=== PATIENT | female | born 1965 | race Caucasian/White ===

== ENCOUNTER 2017-08-12 16:49 | Emergency (ER) | payer MEDICARE ==
[~2017-08-12] VITALS: Ht 154.9 cm; Wt 75.0 kg
[2017-08-12] MEDS ORDERED: IBUPROFEN 800 MG TABLET PO ONE (18:00)
[2017-08-12] MEDS ORDERED: BACITRACIN 0.9 GM PACKET OINTMENT TP ONE (18:00)
[2017-08-12] MEDS ORDERED: TraMADol HCL 50 MG TABLET PO ONE (18:30)
[2017-08-12 19:42] VITALS: BP 122/70
== END 2017-08-12 19:46 | disposition home or self-care (01) ==
LOC: EMS 16:51
DX: S00.93XA Contusion of unspecified part of head, initial encounter (principal); Z88.0 Allergy status to penicillin; Z88.1 Allergy status to other antibiotic agents; X58.XXXA Exposure to other specified factors, initial encounter; Y93.89 Activity, other specified; Y92.89 Other specified places as the place of occurrence of the external cause; Y99.8 Other external cause status
CPT/HCPCS: 99284